=== PATIENT | female | born 1965 | race Caucasian/White ===

== ENCOUNTER 2016-07-16 16:58 | Inpatient (IN) | payer OTHER ==
[~2016-07-16] VITALS: Ht 167.6 cm; Wt 90.2 kg
[2016-07-16 17:22] VITALS: BP 111/61; PULSE 97; TEMP 98.2
[2016-07-16] MEDS ORDERED: B-12 100 MCG (17:26)
[2016-07-16] MEDS ORDERED: NEXIUM 40MG40 MG PO (17:27)
[2016-07-16] MEDS ORDERED: ZESTRIL 10MG10 MG PO (17:27)
[2016-07-16] MEDS ORDERED: KLONOPIN 1MG1 MG PO (17:27)
[2016-07-16] MEDS ORDERED: PROVERA 2.5MG2.5 MG PO (17:28)
[2016-07-16] MEDS ORDERED: HCTZ12.5TAB PO (17:28)
[2016-07-16] MEDS ORDERED: VITAMIN D1000 IU PO (17:29)
[2016-07-16] MEDS ORDERED: MULTI VITAMINS1 TAB PO (17:33)
[2016-07-16 20:16] LABS: INR 1.5 (0.8-3.0); PROTHROMBIN TIME 16.9 SECONDS (9.7-12.8)
[2016-07-16 20:18] LABS: PARTIAL THROMBOPLASTIN TIME 28.5 SECONDS (26.0-37.0)
[2016-07-16 20:35] LABS: BASO % 0.3 % (0.0-2.0); EOS % 0.1 % (0-4.0); GRAN # 6.3 (1.4-6.5); GRAN % 81.6 % (42.2-75.2); LYMPH # 0.8 (1.2-3.4); LYMPH % 9.7 % (20.0-51.0); MEAN CELL VOLUME 117 fl (80.0-100.0); MEAN CORPUSCULAR HGB CONC 35 g/dl (33.0-37.0); MEAN PLATELET VOLUME 10.5 fl (7.4-10.4); MONO # 0.6 (0.1-0.6); MONO % 7.8 % (1.7-9.3); PLATELET COUNT 126 K/mm3 (130-400); RED BLOOD COUNT 2.16 M/mm3 (4.10-5.30); REDCELL DISTRIBUTION WIDTH-CV 13.4 % (11.5-14.5); WHITE BLOOD COUNT 7.7 K/mm3 (4.8-10.8)
[2016-07-16 20:36] LABS: HEMATOCRIT 25.3 % (37.0-47.0); HEMOGLOBIN 8.9 g/dl (12.5-16.0); MEAN CORPUSCULAR HEMOGLOBIN 41 pg (27.0-31.0)
[2016-07-16 20:37] LABS: CALCIUM 6.7 mg/dL (8.4-10.2); CREATININE, serum 2.29 mg/dL (0.52-1.25); MAGNESIUM 1.2 mg/dL (1.6-2.3); PHOSPHOROUS 2.9 mg/dL (2.5-4.5)
[2016-07-16 20:51] LABS: POTASSIUM 2.8 mmol/L (3.4-5.0)
[2016-07-16 21:55] VITALS: BP 108/57; PULSE 98; TEMP 98.3
[2016-07-17] VITALS (12 sets, daily range): BP systolic 80–114; BP diastolic 27–101; PULSE 81–120; TEMP 97.2–98.5
[2016-07-17 07:06] LABS: BASO % 0.2 % (0.0-2.0); EOS % 0.6 % (0-4.0); GRAN # 5.3 (1.4-6.5); GRAN % 80.9 % (42.2-75.2); LYMPH # 0.7 (1.2-3.4); LYMPH % 10.2 % (20.0-51.0); MEAN CELL VOLUME 118 fl (80.0-100.0); MEAN CORPUSCULAR HGB CONC 35 g/dl (33.0-37.0); MEAN PLATELET VOLUME 10.5 fl (7.4-10.4); MONO # 0.5 (0.1-0.6); MONO % 7.3 % (1.7-9.3); PLATELET COUNT 120 K/mm3 (130-400); RED BLOOD COUNT 1.98 M/mm3 (4.10-5.30); REDCELL DISTRIBUTION WIDTH-CV 13.6 % (11.5-14.5); WHITE BLOOD COUNT 6.6 K/mm3 (4.8-10.8)
[2016-07-17 07:09] LABS: HEMATOCRIT 23.4 % (37.0-47.0); HEMOGLOBIN 8.2 g/dl (12.5-16.0); MEAN CORPUSCULAR HEMOGLOBIN 41 pg (27.0-31.0)
[2016-07-17 07:25] LABS: ADJUSTED CALCIUM 7.8 mg/dL (8.4-10.2); ALBUMIN 2.5 gm/dL (3.5-5.0); BILIRUBIN,TOTAL 6.1 mg/dL (0.0-1.0); CALCIUM 6.6 mg/dL (8.4-10.2); CREATININE, serum 2.48 mg/dL (0.52-1.25); POTASSIUM 3.2 mmol/L (3.4-5.0); TOTAL PROTEIN 5.5 gm/dL (6.4-8.2)
[2016-07-17 07:42] LABS: BILIRUBIN,DIRECT 4.6 mg/dL (0.0-0.4)
[2016-07-17 11:46] LABS: CREATININE, serum 2.51 mg/dL (0.52-1.25)
[2016-07-17 12:26] LABS: FRACTIONAL EXCRETION OF NA+ 17.4 %
[2016-07-17 16:05] LABS: PERITONEAL -POLYMORPHONUCLEAR 42.5 % (0-25); PERITONEAL FLUID RBC 0 /mm3 (0-0)
[2016-07-17 16:19] LABS: PH 5 (5-8); SQUAMOUS EPITHELIAL 0-2 /hpf; URINE APPEARANCE Hazy; URINE BACTERIA Rare /hpf; URINE BILIRUBIN Negative (NEGATIVE); URINE BLOOD 3+ (NEGATIVE); URINE COLOR Yellow; URINE GLUCOSE Negative (NEGATIVE); URINE KETONE Negative (NEGATIVE); URINE UROBILINOGEN Negative (NEGATIVE)
[2016-07-17 16:33] LABS: AMPHETAMINE URINE NEGATIVE; BARBITURATES URINE NEGATIVE; BENZODIAZEPINES URINE NEGATIVE; BUPRENORPHINE URINE NEGATIVE; METHADONE URINE NEGATIVE; OPIATES URINE POSITIVE; OXYCODONE URINE NEGATIVE; PHENCYCLIDINE URINE NEGATIVE; PROPOXYPHENE URINE NEGATIVE; THC CANNABINOIDS URINE NEGATIVE
[2016-07-18] VITALS (11 sets, daily range): BP systolic 89–111; BP diastolic 29–79; PULSE 84–96; TEMP 97.6–98.9
[2016-07-18 07:32] LABS: BASO % 0.1 % (0.0-2.0); EOS # 0.1 (0.0-0.7); EOS % 0.8 % (0-4.0); GRAN # 5.8 (1.4-6.5); GRAN % 79.8 % (42.2-75.2); LYMPH # 0.9 (1.2-3.4); LYMPH % 12.8 % (20.0-51.0); MEAN CELL VOLUME 119 fl (80.0-100.0); MEAN CORPUSCULAR HGB CONC 34 g/dl (33.0-37.0); MEAN PLATELET VOLUME 10.7 fl (7.4-10.4); MONO # 0.4 (0.1-0.6); MONO % 5.7 % (1.7-9.3); PLATELET COUNT 128 K/mm3 (130-400); RED BLOOD COUNT 2.13 M/mm3 (4.10-5.30); REDCELL DISTRIBUTION WIDTH-CV 13.4 % (11.5-14.5); WHITE BLOOD COUNT 7.2 K/mm3 (4.8-10.8)
[2016-07-18 07:40] LABS: HEMATOCRIT 25.4 % (37.0-47.0); HEMOGLOBIN 8.7 g/dl (12.5-16.0); MEAN CORPUSCULAR HEMOGLOBIN 41 pg (27.0-31.0)
[2016-07-18 07:52] LABS: ADJUSTED CALCIUM 7.4 mg/dL (8.4-10.2); ALBUMIN 2.5 gm/dL (3.5-5.0); BILIRUBIN,TOTAL 7.6 mg/dL (0.0-1.0); CALCIUM 6.2 mg/dL (8.4-10.2); CREATININE, serum 2.75 mg/dL (0.52-1.25); MAGNESIUM 1.5 mg/dL (1.6-2.3); POTASSIUM 3.9 mmol/L (3.4-5.0); TOTAL PROTEIN 5.6 gm/dL (6.4-8.2)
[2016-07-18 19:28] LABS: PH 5 (5-8); SQUAMOUS EPITHELIAL None Seen /hpf; URINE APPEARANCE Cloudy; URINE BACTERIA Occasional /hpf; URINE BILIRUBIN Positive (NEGATIVE); URINE BLOOD 3+ (NEGATIVE); URINE COLOR Amber; URINE GLUCOSE Negative (NEGATIVE); URINE KETONE Negative (NEGATIVE); URINE RBC >50 /hpf; URINE UROBILINOGEN >=4.0 mg/dL (NEGATIVE); URINE WBC >50 /hpf
[2016-07-18 23:31] LABS: PROT-CREAT RATIO, URINE 1.4 (())
[2016-07-19] VITALS (13 sets, daily range): BP systolic 70–103; BP diastolic 21–58; PULSE 44–88; TEMP 97.3–98.5
[2016-07-19 07:22] LABS: INR 1.3 (0.8-3.0); PROTHROMBIN TIME 14.5 SECONDS (9.7-12.8)
[2016-07-19 07:29] LABS: MEAN CORPUSCULAR HGB CONC 34 g/dl (33.0-37.0); MEAN PLATELET VOLUME 10.2 fl (7.4-10.4); PLATELET COUNT 122 K/mm3 (130-400); RED BLOOD COUNT 1.93 M/mm3 (4.10-5.30); REDCELL DISTRIBUTION WIDTH-CV 13.6 % (11.5-14.5); WHITE BLOOD COUNT 7.5 K/mm3 (4.8-10.8)
[2016-07-19 07:31] LABS: HEMATOCRIT 23.3 % (37.0-47.0); MEAN CELL VOLUME 121 fl (80.0-100.0); MEAN CORPUSCULAR HEMOGLOBIN 41 pg (27.0-31.0)
[2016-07-19 07:34] LABS: ADJUSTED CALCIUM 7.6 mg/dL (8.4-10.2); ALBUMIN 2.3 gm/dL (3.5-5.0); BILIRUBIN,TOTAL 6.4 mg/dL (0.0-1.0); CALCIUM 6.2 mg/dL (8.4-10.2); CREATININE, serum 2.91 mg/dL (0.52-1.25); PHOSPHOROUS 2.7 mg/dL (2.5-4.5); POTASSIUM 4.2 mmol/L (3.4-5.0); TOTAL PROTEIN 5.1 gm/dL (6.4-8.2)
[2016-07-20] VITALS (14 sets, daily range): BP systolic 78–121; BP diastolic 30–57; PULSE 53–77; TEMP 97.3–98.5
[2016-07-20 01:18] LABS: C-ANCA 9 U/mL (0-99); P-ANCA 34 U/mL (0-99)
[2016-07-20 08:20] LABS: MEAN CELL VOLUME 120 fl (80.0-100.0); MEAN CORPUSCULAR HGB CONC 34 g/dl (33.0-37.0); MEAN PLATELET VOLUME 10.7 fl (7.4-10.4); PLATELET COUNT 159 K/mm3 (130-400); RED BLOOD COUNT 2.27 M/mm3 (4.10-5.30); REDCELL DISTRIBUTION WIDTH-CV 13.8 % (11.5-14.5); WHITE BLOOD COUNT 9.9 K/mm3 (4.8-10.8)
[2016-07-20 08:21] LABS: HEMATOCRIT 27.3 % (37.0-47.0); HEMOGLOBIN 9.4 g/dl (12.5-16.0); MEAN CORPUSCULAR HEMOGLOBIN 41 pg (27.0-31.0)
[2016-07-20 08:30] LABS: ADJUSTED CALCIUM 7.2 mg/dL (8.4-10.2); ALBUMIN 3.2 gm/dL (3.5-5.0); BILIRUBIN,TOTAL 7.5 mg/dL (0.0-1.0); CALCIUM 6.6 mg/dL (8.4-10.2); CREATININE, serum 3.32 mg/dL (0.52-1.25); POTASSIUM 4.1 mmol/L (3.4-5.0); TOTAL PROTEIN 6.1 gm/dL (6.4-8.2)
[2016-07-20 09:44] LABS: PHOSPHOROUS 3.3 mg/dL (2.5-4.5)
[2016-07-21] VITALS (12 sets, daily range): BP systolic 90–152; BP diastolic 40–83; PULSE 61–96; TEMP 97–98.5
[2016-07-21 11:36] LABS: CALCIUM 6.9 mg/dL (8.4-10.2); CREATININE, serum 3.75 mg/dL (0.52-1.25); POTASSIUM 4.4 mmol/L (3.4-5.0)
[2016-07-22] VITALS (10 sets, daily range): BP systolic 112–160; BP diastolic 66–90; PULSE 77–109; TEMP 97.2–98.6
[2016-07-22 07:03] LABS: BASO % 0.5 % (0.0-2.0); EOS # 0.1 (0.0-0.7); EOS % 0.9 % (0-4.0); GRAN # 6.3 (1.4-6.5); GRAN % 77.1 % (42.2-75.2); LYMPH # 0.8 (1.2-3.4); LYMPH % 9.9 % (20.0-51.0); MEAN CELL VOLUME 119 fl (80.0-100.0); MEAN CORPUSCULAR HGB CONC 34 g/dl (33.0-37.0); MEAN PLATELET VOLUME 9.8 fl (7.4-10.4); MONO # 0.9 (0.1-0.6); MONO % 10.5 % (1.7-9.3); PLATELET COUNT 192 K/mm3 (130-400); RED BLOOD COUNT 2.28 M/mm3 (4.10-5.30); REDCELL DISTRIBUTION WIDTH-CV 13.9 % (11.5-14.5); WHITE BLOOD COUNT 8.2 K/mm3 (4.8-10.8)
[2016-07-22 07:07] LABS: HEMATOCRIT 27.1 % (37.0-47.0); HEMOGLOBIN 9.2 g/dl (12.5-16.0); MEAN CORPUSCULAR HEMOGLOBIN 40 pg (27.0-31.0)
[2016-07-22 07:30] LABS: CALCIUM 7.3 mg/dL (8.4-10.2); POTASSIUM 4.3 mmol/L (3.4-5.0)
[2016-07-22 07:32] LABS: CREATININE, serum 4.09 mg/dL (0.52-1.25)
[2016-07-22 14:07] LABS: ALBUMIN FRACTION 2.7 g/dL (2.6-4.5); ALBUMIN PERCENTAGE 55.7 % (48.7-61.8); ALPHA 1 FRACTION 0.4 g/dL (0.3-0.5); ALPHA 1 PERCENTAGE 7.4 % (3.4-8.3); ALPHA 2 FRACTION 0.7 g/dL (0.6-1.2); ALPHA 2 PERCENTAGE 15.1 % (8.4-17.5); BETA 1 FRACTION 0.2 g/dL (0.4-0.6); BETA 1 PERCENTAGE 3.9 % (5.4-8.9); BETA 2 FRACTION 0.3 g/dL (0.2-0.5); BETA 2 PERCENTAGE 5.7 % (3.8-7.7); GAMMA FRACTION 0.6 g/dL (0.4-1.7); GAMMA PERCENTAGE 12.2 % (8.1-23.0); SERUM PROTEIN TOTAL 4.9 g/dL (6.1-7.7)
[2016-07-23 02:16] VITALS: BP 151/74; PULSE 121
[2016-07-23 08:10] VITALS: BP 131/76; PULSE 122
[2016-08-07 13:40] LABS: A1 PHENOTYPE 234 (())
== END 2016-07-24 15:30 | disposition expired | DRG 432 ==
LOC: SURG 16:58 → SDCO 16:58 → SURG 17:02 → SDCO 17:03 → SURG 17:03 → SDCO 07-17 10:00 → SURG 07-18 16:15 → EU 07-24 02:07
PROVIDERS: Internal Medicine; Internal Medicine Gastroenterology; Nurse Practitioner Family; Surgery
PROC: 0W9G3ZX Drainage of Peritoneal Cavity, Percutaneous Approach, Diagnostic (ICD-10-PCS; principal; 2016-07-17)
DX: K70.31 Alcoholic cirrhosis of liver with ascites (principal); K72.00 Acute and subacute hepatic failure without coma; E87.1 Hypo-osmolality and hyponatremia; N17.9 Acute kidney failure, unspecified; Z51.5 Encounter for palliative care; E87.6 Hypokalemia; E83.42 Hypomagnesemia; F17.210 Nicotine dependence, cigarettes, uncomplicated; F10.10 Alcohol abuse, uncomplicated; I10 Essential (primary) hypertension; D53.9 Nutritional anemia, unspecified
CPT/HCPCS: OP; 99223; 99232-AI; J2060; J2250; J2270; J2354; J2405; J2704; J3010; J3411; J3430; J3475; J3480; P9047